=== PATIENT | female | born 1985 | race African-American/Black ===

== ENCOUNTER 2019-07-06 05:51 | Inpatient (IN) ==
[2019-07-06 06:29] LABS: Basophils # 0.1 10*3/uL (0.0-0.2); Eosinophils # 0.1 10*3/uL (0.0-0.87); Hematocrit 35.3 VOL% (35.7-47.0); Immature Granulocytes % 0.4 %; Immature Granulocytes Absolute 0.03 #; Lymphocytes # 4.7 10*3/uL (1.4-4.0); Lymphocytes % 65.7 % (21.3-54.2); Mean Corpuscular HGB Conc 31.2 GM/DL (32-36); Mean Corpuscular Volume 70.2 FL (87-102); Monocytes % 7.3 % (1.7-12.7); Neutrophils % 23.6 % (38.7-73.9); Platelet Count 77 T/CUMM (130-400); Red Blood Count 5.03 MC/CUMM (3.8-5.5); Red Cell Distribution Width 27.7 % (9.3-17.3); White Blood Count 7.1 T/CUMM (4-12)
[2019-07-06 06:50] LABS: Albumin 3.3 G/DL (3.4-5.0); Bilirubin,Total 0.8 MG/DL (0.2-1.0); Calcium 8.6 MG/DL (8.5-10.1); Osmolality,Calculated 274.4 MOS/KG (273-304); Total Protein 7.6 G/DL (6.4-8.3)
[2019-07-06 07:27] LABS: Lymphocytes 52 % (20-55); Metamyelocytes 2 %; Segmented Neutrophils 29 % (50-85); Total Cells Counted 100
[2019-07-06 07:28] LABS: Hypochromasia 2+; Microcytosis 2+; Schistocytes Slight
[2019-07-06 07:29] LABS: Ovalocytes Few; Platelet Estimate Decreased; Polychromasia Slight
[2019-07-06] MEDS ORDERED: LORazepam 1 MG TABLET ONE (08:10)
[2019-07-06] MEDS ORDERED: LORazepam 1 MG TABLET PO STA (08:13)
[2019-07-06] MEDS ORDERED: VASOPRESSIN 20 UNITS/ML VIAL ONE (08:15)
[2019-07-06] MEDS: LACTATED RINGERS 1,000 ML IV SCH ×3 (08:21→21:13)
[2019-07-06] MEDS ORDERED: BUPIVACAINE 0.5% 50 ML VIAL ONE (08:35)
[2019-07-06] MEDS ORDERED: LIDOCAINE 1% 5 ML VIAL ONE (08:35)
[2019-07-06] MEDS ORDERED: EPINEPHrine 1 MG/ML VIAL ONE (08:36)
[2019-07-06] MEDS ORDERED: DEXAMETHASONE 4 MG/1 ML VIAL ONE (08:36)
[2019-07-06] MEDS ORDERED: cefOXitin 2,000 MG in SYRINGE 1 EACH IV ONE (09:00)
[2019-07-06] MEDS ORDERED: ONDANSETRON 4 MG/2 ML VIAL IV PRN (11:54)
[2019-07-06] MEDS: HYDROmorphone 2 MG/1 ML VIAL IV PRN ×4 (11:56→12:23)
[2019-07-06] MEDS ORDERED: ACETAMINOPHEN INJ 1,000 MG in PREMIX 1 EACH IV ONE (11:59)
[2019-07-06] MEDS ORDERED: ACETAMINOPHEN 1,000 MG/100 ML VIAL IV ONE (12:01)
[2019-07-06 12:05] LABS: Apearance,Urine CLEAR (Clear); Bacteria,Urine Occasional /HPF (Few); Bilirubin,Urine Negative (Negative); Blood, Urine Negative (Negative); Glucose,Urine (UA) Negative (Negative); Ketones,Urine Negative (Negative); Mucus,Urine Occasional /LPF (Occasional); Nitrite,Urine Negative (Negative); Protein,Urine Negative; RBC,Urine <1 /HPF (0-4); Squamous Epithelial Cell,Urine Occasional /HPF (0-10); Urine Color Yellow (Yellow); Urine Specific Gravity 1.006 (1.001-1.035)
[2019-07-06] MEDS ORDERED: DESFLURANE 1 UNIT/15 MINUTE INH ONE (12:23)
[2019-07-06] MEDS ORDERED: MIDAZOLAM 2 MG/2 ML VIAL ONE (12:23)
[2019-07-06] MEDS ORDERED: fentaNYL 100 MCG/2 ML VIAL ONE (12:23)
[2019-07-06] MEDS ORDERED: PROPOFOL 200 MG/20 ML VIAL IV ONE (12:23)
[2019-07-06] MEDS ORDERED: LIDOCAINE 2% 5 ML VIAL ONE (12:23)
[2019-07-06] MEDS ORDERED: METOPROLOL TARTRATE 5 MG/5 ML VIAL IV ONE (12:24)
[2019-07-06] MEDS ORDERED: ROCURONIUM 100 MG/10 ML VIAL IV ONE (12:24)
[2019-07-06] MEDS ORDERED: SUCCINYLCHOLINE 200 MG/10 ML VIAL ONE (12:24)
[2019-07-06] MEDS ORDERED: NEOSTIGMINE 10 MG/10 ML VIAL ONE (12:24)
[2019-07-06] MEDS ORDERED: KETOROLAC 30 MG/1 ML VIAL ONE (12:24)
[2019-07-06] MEDS ORDERED: LACTATED RINGERS 1,000 ML IV ONE (12:24)
[2019-07-06] MEDS ORDERED: GLYCOPYRROLATE 0.4 MG/2 ML VIAL ONE (12:24)
[2019-07-06] MEDS ORDERED: BENZOCAINE/MENTHOL LOZENGE 18/BOX PO PRN (13:07)
[2019-07-06] MEDS ORDERED: ACETAMINOPHEN 325 MG TABLET PO PRN (13:07)
[2019-07-06] MEDS ORDERED: BISACODYL 10 MG SUPP RECTAL PRN (13:07)
[2019-07-06] MEDS ORDERED: ESTRADIOL 0.1 MG PATCH (1X WK) TRANSDERM SCH (13:07)
[2019-07-06] MEDS ORDERED: INFLUENZA VIRUS VACCINE 0.5 ML SYRINGE IM ONE (13:36)
[2019-07-06] MEDS: NICOTINE 14 MG/24 HR PATCH TRANSDERM SCH (15:05)
[2019-07-06] MEDS: ceFAZolin 1,000 MG in SYRINGE 1 EACH IV SCH (17:55)
[2019-07-06] MEDS: CETIRIZINE 10 MG TABLET PO SCH (20:46)
[2019-07-07] MEDS: ceFAZolin 1,000 MG in SYRINGE 1 EACH IV SCH (01:25)
[2019-07-07 05:31] LABS: Basophils # 0.1 10*3/uL (0.0-0.2); Basophils % 0.7 % (0.0-0.8); Eosinophils % 0.4 % (0.00-10.9); Hematocrit 24.9 VOL% (35.7-47.0); Hemoglobin 7.8 GM/DL (12.0-16.0); Immature Granulocytes % 0.4 %; Immature Granulocytes Absolute 0.03 #; Lymphocytes # 4.1 10*3/uL (1.4-4.0); Mean Corpuscular HGB Conc 31.3 GM/DL (32-36); Mean Corpuscular Volume 70.9 FL (87-102); Monocytes % 7.9 % (1.7-12.7); NRBC # 0.02 10*3/uL; Neutrophils % 34.6 % (38.7-73.9); Red Blood Count 3.51 MC/CUMM (3.8-5.5); White Blood Count 7.3 T/CUMM (4-12)
[2019-07-07 05:46] LABS: Platelet Count 92 T/CUMM (130-400)
[2019-07-07] MEDS: SIMETHICONE CHEW 80 MG TABLET PO PRN ×2 (06:00→10:10)
[2019-07-07 06:43] LABS: Anisocytosis 2+; Band Neutrophils 10 % (0-10); Lymphocytes 32 % (20-55); Platelet Estimate Decreased; Poikilocytosis 1+; Polychromasia 1+; Segmented Neutrophils 48 % (50-85); Smudge Cells 2+; Target Cells Few; Total Cells Counted 100
[2019-07-07] MEDS: ONDANSETRON 4 MG/2 ML VIAL IV PRN (06:51)
[2019-07-07] MEDS ORDERED: PROMETHAZINE 25 MG/1 ML VIAL IM PRN (07:57)
[2019-07-07] MEDS: MAGNESIUM HYDROXIDE SUSP 30 ML UDCUP PO PRN ×2 (10:09→19:27)
[2019-07-07] MEDS: NICOTINE 14 MG/24 HR PATCH TRANSDERM SCH (10:09)
[2019-07-07] MEDS: FLUTICASONE 50 MCG NASAL SPRAY 16 GM BOTTLE BOTH NARES SCH (10:09)
[2019-07-07] MEDS: DOCUSATE SODIUM 100 MG CAPSULE PO PRN ×2 (10:10→19:27)
[2019-07-07] MEDS ORDERED: SODIUM CHLORIDE 0.9% 1,000 ML IV PRN (11:30)
[2019-07-07] MEDS ORDERED: diphenhydrAMINE CAP 25 MG CAPSULE PO ONE (12:13)
[2019-07-07] MEDS: CETIRIZINE 10 MG TABLET PO SCH (21:48)
[2019-07-08 05:44] LABS: Calcium 8.9 MG/DL (8.5-10.1); Osmolality,Calculated 280.1 MOS/KG (273-304)
[2019-07-08 05:47] LABS: Basophils # 0.1 10*3/uL (0.0-0.2); Basophils % 0.7 % (0.0-0.8); Eosinophils % 0.4 % (0.00-10.9); Hematocrit 28.5 VOL% (35.7-47.0); Hemoglobin 8.9 GM/DL (12.0-16.0); Immature Granulocytes % 0.5 %; Immature Granulocytes Absolute 0.06 #; Lymphocytes # 5.3 10*3/uL (1.4-4.0); Mean Corpuscular HGB Conc 31.2 GM/DL (32-36); Mean Corpuscular Volume 75.4 FL (87-102); Monocytes % 9.4 % (1.7-12.7); Platelet Count 94 T/CUMM (130-400); Red Blood Count 3.78 MC/CUMM (3.8-5.5); Red Cell Distribution Width 27.1 % (9.3-17.3); White Blood Count 11.1 T/CUMM (4-12)
[2019-07-08 06:16] LABS: Eosinophils 4 % (0-10); Hypochromasia 1+; Lymphocytes 37 % (20-55); Ovalocytes Slight; Platelet Estimate Decreased; Segmented Neutrophils 52 % (50-85); Total Cells Counted 100
[2019-07-08] MEDS: MAGNESIUM HYDROXIDE SUSP 30 ML UDCUP PO PRN (07:57)
[2019-07-08] MEDS: DOCUSATE SODIUM 100 MG CAPSULE PO PRN ×2 (07:57→21:08)
[2019-07-08] MEDS: SIMETHICONE CHEW 80 MG TABLET PO PRN (07:57)
[2019-07-08] MEDS: NICOTINE 14 MG/24 HR PATCH TRANSDERM SCH (08:00)
[2019-07-08] MEDS: FLUTICASONE 50 MCG NASAL SPRAY 16 GM BOTTLE BOTH NARES SCH (08:00)
[2019-07-08] MEDS ORDERED: amLODIPine 10 MG TABLET PO ONE (09:00)
[2019-07-08] MEDS: ONDANSETRON 4 MG/2 ML VIAL IV PRN (10:47)
[2019-07-08] MEDS: METOCLOPRAMIDE 10 MG/2 ML VIAL IV PRN (11:21)
[2019-07-08] MEDS: CETIRIZINE 10 MG TABLET PO SCH (21:08)
[2019-07-08] MEDS: LACTATED RINGERS 1,000 ML IV SCH (21:10)
[2019-07-09] MEDS: LACTATED RINGERS 1,000 ML IV SCH ×2 (04:51→13:30)
[2019-07-09] MEDS: DOCUSATE SODIUM 100 MG CAPSULE PO PRN ×2 (12:18→21:12)
[2019-07-09] MEDS: NICOTINE 14 MG/24 HR PATCH TRANSDERM SCH (12:18)
[2019-07-09] MEDS: METOCLOPRAMIDE 10 MG/2 ML VIAL IV PRN (12:19)
[2019-07-09] MEDS: FLUTICASONE 50 MCG NASAL SPRAY 16 GM BOTTLE BOTH NARES SCH (12:24)
[2019-07-09] MEDS: IBUPROFEN 800 MG TABLET PO PRN (17:05)
[2019-07-09] MEDS: CETIRIZINE 10 MG TABLET PO SCH (21:12)
[2019-07-10 07:57] VITALS: BP 120/76
[2019-07-10] MEDS: DOCUSATE SODIUM 100 MG CAPSULE PO PRN (08:51)
[2019-07-10] MEDS: IBUPROFEN 800 MG TABLET PO PRN (08:51)
[2019-07-10] MEDS: FLUTICASONE 50 MCG NASAL SPRAY 16 GM BOTTLE BOTH NARES SCH (08:52)
[2019-07-10] MEDS: NICOTINE 14 MG/24 HR PATCH TRANSDERM SCH (09:00)
== END 2019-07-10 12:00 | disposition home or self-care (01) | DRG 519 ==
LOC: N.SDSINP 05:51 → N.OB 12:31
PROVIDERS: ADMIT Obstetrics & Gynecology; ATTEND Obstetrics & Gynecology

== ENCOUNTER 2019-07-16 09:53 | Inpatient (IN) ==
[2019-07-16 11:00] LABS: Basophils # 0.1 10*3/uL (0.0-0.2); Basophils % 0.7 % (0.0-0.8); Eosinophils # 0.1 10*3/uL (0.0-0.87); Eosinophils % 0.8 % (0.00-10.9); Hemoglobin 9.5 GM/DL (12.0-16.0); Immature Granulocytes % 0.8 %; Immature Granulocytes Absolute 0.07 #; Lymphocytes # 4.3 10*3/uL (1.4-4.0); Lymphocytes % 50.6 % (21.3-54.2); Mean Corpuscular HGB Conc 29.7 GM/DL (32-36); Mean Corpuscular Volume 77.5 FL (87-102); Monocytes % 8.2 % (1.7-12.7); NRBC # 0.03 10*3/uL; Neutrophils % 38.9 % (38.7-73.9); Platelet Count 175 T/CUMM (130-400); Red Blood Count 4.13 MC/CUMM (3.8-5.5); Red Cell Distribution Width 27.4 % (9.3-17.3); White Blood Count 8.6 T/CUMM (4-12)
[2019-07-16 11:25] LABS: Albumin 3.5 G/DL (3.4-5.0); Bilirubin,Total 1.3 MG/DL (0.2-1.0); Calcium 8.8 MG/DL (8.5-10.1)
[2019-07-16 11:41] LABS: Band Neutrophils 6 % (0-10); Eosinophils 1 % (0-10); Lymphocytes 41 % (20-55); Nucleated Red Blood Cells 2 (0-5); Platelet Estimate Normal; Segmented Neutrophils 43 % (50-85); Total Cells Counted 100
[2019-07-16 11:42] LABS: Anisocytosis 2+; Hypochromasia 1+; Macrocytosis 1+; Poikilocytosis Slight; Polychromasia 1+
[2019-07-16 12:04] LABS: Apearance,Urine CLOUDY (Clear); Bacteria,Urine Occasional /HPF (Few); Bilirubin,Urine Negative (Negative); Blood, Urine Moderate mg/dL (Negative); Glucose,Urine (UA) Negative (Negative); Ketones,Urine Negative (Negative); Nitrite,Urine Negative (Negative); Protein,Urine Negative; RBC,Urine 38 /HPF (0-4); Squamous Epithelial Cell,Urine Moderate /HPF (0-10); Transitional Epi Cells,Urine Occasional /HPF (<1); Urine Color Yellow (Yellow); Urine Specific Gravity 1.051 (1.001-1.035); Urine Urobilinogen < 2.0 EU/DL (0.2-1.0); WBC,Urine 27 /HPF (0-6)
[2019-07-16 12:49] LABS: INR 1.1; PT Patient Result 11.6 SECS (9.6-12.2); Partial Thromboplastin Time 23.8 SECS (20.8-36.0)
[2019-07-16] MEDS ORDERED: fentaNYL 100 MCG/2 ML VIAL ONE (13:11)
[2019-07-16] MEDS ORDERED: MIDAZOLAM 2 MG/2 ML VIAL ONE (13:11)
[2019-07-16] MEDS ORDERED: MIDAZOLAM 2 MG/2 ML VIAL IV ONE (13:20)
[2019-07-16] MEDS ORDERED: fentaNYL 100 MCG/2 ML VIAL IV ONE (13:23)
[2019-07-16] MEDS ORDERED: ALTEPLASE 2 MG VIAL ONE (13:35)
[2019-07-16] MEDS ORDERED: ALTEPLASE 2 MG VIAL INTRACATH ONE (13:39)
[2019-07-16] MEDS ORDERED: ACETAMINOPHEN 325 MG TABLET PO PRN (14:21)
[2019-07-16] MEDS ORDERED: ONDANSETRON 4 MG/2 ML VIAL IV PRN (14:21)
[2019-07-16] MEDS ORDERED: BISACODYL 10 MG SUPP RECTAL PRN (14:21)
[2019-07-16] MEDS ORDERED: MAGNESIUM HYDROXIDE SUSP 30 ML UDCUP PO PRN (14:21)
[2019-07-16] MEDS: cefTRIAXone 1,000 MG in SYRINGE 1 EACH IV SCH (14:31)
[2019-07-16 14:44] LABS: Albumin 3.6 G/DL (3.4-5.0); Bilirubin,Direct 0.34 MG/DL (0.0-0.20); Bilirubin,Indirect 0.7 MG/DL (0.0-1.0); Total Protein 8.3 G/DL (6.4-8.3)
[2019-07-16] MEDS: CLINDAMYCIN INJ 600 MG in PREMIX 1 EACH IV SCH (14:50)
[2019-07-16] MEDS: IBUPROFEN 800 MG TABLET PO PRN (15:19)
[2019-07-16 17:59] LABS: % Iron Saturation 29.9 % (18-50); Ferritin 56.5 ng/ml (8-252)
[2019-07-16 18:09] LABS: Folate 13.2 NG/ML (5.4-24.0)
[2019-07-16 18:46] LABS: Hepatitis B Core IgM Quant 0.07 Index; Hepatitis B Surface Ag Quant 0.58 Index; Hepatitis B Surface Ag Result Negative (Negative); Hepatitis C Virus Ab Quant 0.11 Index; Hepatitis C Virus Ab Result Negative (Negative)
[2019-07-16] MEDS: LACTATED RINGERS 1,000 ML IV SCH (19:58)
[2019-07-16] MEDS: DOCUSATE SODIUM 100 MG CAPSULE PO SCH (20:00)
[2019-07-17] MEDS: IBUPROFEN 800 MG TABLET PO PRN ×2 (00:13→15:48)
[2019-07-17] MEDS: CLINDAMYCIN INJ 600 MG in PREMIX 1 EACH IV SCH ×4 (00:15→22:15)
[2019-07-17] MEDS: LACTATED RINGERS 1,000 ML IV SCH ×3 (03:01→22:06)
[2019-07-17 05:23] LABS: Basophils # 0.1 10*3/uL (0.0-0.2); Basophils % 0.7 % (0.0-0.8); Eosinophils # 0.1 10*3/uL (0.0-0.87); Eosinophils % 1.9 % (0.00-10.9); Hematocrit 28.5 VOL% (35.7-47.0); Hemoglobin 8.5 GM/DL (12.0-16.0); Immature Granulocytes % 0.6 %; Immature Granulocytes Absolute 0.04 #; Lymphocytes # 3.9 10*3/uL (1.4-4.0); Lymphocytes % 58.1 % (21.3-54.2); Mean Corpuscular HGB Conc 29.8 GM/DL (32-36); Mean Corpuscular Volume 77.7 FL (87-102); Monocytes % 10.3 % (1.7-12.7); NRBC # 0.03 10*3/uL; Neutrophils % 28.4 % (38.7-73.9); Platelet Count 152 T/CUMM (130-400); Red Blood Count 3.67 MC/CUMM (3.8-5.5); Red Cell Distribution Width 27.4 % (9.3-17.3); White Blood Count 6.8 T/CUMM (4-12)
[2019-07-17 05:48] LABS: Eosinophils 1 % (0-10); Hypochromasia 2+; Lymphocytes 47 % (20-55); Nucleated Red Blood Cells 1 (0-5); Ovalocytes Slight; Platelet Estimate Adequate; Segmented Neutrophils 44 % (50-85); Total Cells Counted 100
[2019-07-17 05:49] LABS: Atypical Lymphocytes Few
[2019-07-17 08:02] LABS: Albumin 3.1 G/DL (3.4-5.0); Bilirubin,Direct 0.33 MG/DL (0.0-0.20); Bilirubin,Indirect 0.7 MG/DL (0.0-1.0)
[2019-07-17] MEDS ORDERED: cefTRIAXone 1,000 MG VIAL ONE (11:15)
[2019-07-17] MEDS ORDERED: LIDOCAINE 2% 5 ML VIAL ONE (11:38)
[2019-07-17] MEDS ORDERED: ONDANSETRON 4 MG/2 ML VIAL ONE (11:38)
[2019-07-17] MEDS ORDERED: SEVOFLURANE 1 UNIT/15 MINUTE INH ONE (11:38)
[2019-07-17] MEDS ORDERED: PROPOFOL 200 MG/20 ML VIAL IV ONE (11:38)
[2019-07-17] MEDS ORDERED: MIDAZOLAM 2 MG/2 ML VIAL ONE (11:38)
[2019-07-17] MEDS ORDERED: fentaNYL 100 MCG/2 ML VIAL ONE (11:38)
[2019-07-17] MEDS ORDERED: HYDROmorphone 2 MG/1 ML VIAL IV PRN (12:04)
[2019-07-17] MEDS ORDERED: HYDROmorphone 2 MG/1 ML VIAL ONE (12:06)
[2019-07-17] MEDS: cefTRIAXone 1,000 MG in SYRINGE 1 EACH IV SCH (14:20)
[2019-07-17] MEDS: amLODIPine 10 MG TABLET PO SCH (14:25)
[2019-07-17] MEDS: OXYBUTYNIN 5 MG TABLET PO PRN (14:25)
[2019-07-17] MEDS: DOCUSATE SODIUM 100 MG CAPSULE PO SCH ×2 (15:48→22:07)
[2019-07-18] MEDS: IBUPROFEN 800 MG TABLET PO PRN ×3 (03:17→18:02)
[2019-07-18] MEDS: CLINDAMYCIN INJ 600 MG in PREMIX 1 EACH IV SCH ×3 (06:18→21:39)
[2019-07-18 08:28] LABS: Albumin 3.1 G/DL (3.4-5.0); Calcium 8.6 MG/DL (8.5-10.1); Osmolality,Calculated 270.7 MOS/KG (273-304); Total Protein 7.2 G/DL (6.4-8.3)
[2019-07-18] MEDS ORDERED: MAGNESIUM SULF IV ONE (08:36)
[2019-07-18] MEDS ORDERED: SODIUM CHLORIDE 0.9% IV ONE (08:36)
[2019-07-18 08:39] LABS: Bilirubin,Direct 0.41 MG/DL (0.0-0.20); Bilirubin,Indirect 0.6 MG/DL (0.0-1.0)
[2019-07-18] MEDS ORDERED: MAGNESIUM SULF RIDER 50 ML IV ONE (09:30)
[2019-07-18] MEDS: NICOTINE 14 MG/24 HR PATCH TRANSDERM SCH ×2 (09:42→10:28)
[2019-07-18] MEDS: amLODIPine 10 MG TABLET PO SCH (09:42)
[2019-07-18] MEDS: LACTATED RINGERS 1,000 ML IV SCH ×3 (10:24→21:25)
[2019-07-18] MEDS: cefTRIAXone 1,000 MG in SYRINGE 1 EACH IV SCH (14:36)
[2019-07-18] MEDS: DOCUSATE SODIUM 100 MG CAPSULE PO SCH ×2 (14:58→21:25)
[2019-07-18] MEDS: OXYBUTYNIN 5 MG TABLET PO PRN (18:02)
[2019-07-19] MEDS: LACTATED RINGERS 1,000 ML IV SCH ×2 (05:34→17:00)
[2019-07-19] MEDS: CLINDAMYCIN INJ 600 MG in PREMIX 1 EACH IV SCH ×3 (05:34→22:22)
[2019-07-19 06:26] LABS: Basophils # 0.1 10*3/uL (0.0-0.2); Basophils % 0.9 % (0.0-0.8); Eosinophils # 0.1 10*3/uL (0.0-0.87); Eosinophils % 1.9 % (0.00-10.9); Hematocrit 29.3 VOL% (35.7-47.0); Immature Granulocytes % 0.6 %; Immature Granulocytes Absolute 0.04 #; Lymphocytes # 4.3 10*3/uL (1.4-4.0); Mean Corpuscular HGB Conc 30.7 GM/DL (32-36); Mean Corpuscular Volume 77.3 FL (87-102); Monocytes % 7.8 % (1.7-12.7); NRBC # 0.03 10*3/uL; Neutrophils % 25.8 % (38.7-73.9); Platelet Count 162 T/CUMM (130-400); Red Blood Count 3.79 MC/CUMM (3.8-5.5); Red Cell Distribution Width 27.1 % (9.3-17.3); White Blood Count 6.8 T/CUMM (4-12)
[2019-07-19 06:49] LABS: Albumin 3.1 G/DL (3.4-5.0); Bilirubin,Total 0.8 MG/DL (0.2-1.0); Calcium 8.9 MG/DL (8.5-10.1); Osmolality,Calculated 274.4 MOS/KG (273-304); Total Protein 7.2 G/DL (6.4-8.3)
[2019-07-19] MEDS ORDERED: MAGNESIUM SULF RIDER 2 GM in PREMIX 1 EACH IV ONE (06:58)
[2019-07-19 07:07] LABS: Eosinophils 1 % (0-10); Lymphocytes 54 % (20-55); Platelet Estimate Decreased; Polychromasia Few; Segmented Neutrophils 38 % (50-85); Total Cells Counted 100
[2019-07-19 07:28] LABS: Bilirubin,Direct 0.3 MG/DL (0.0-0.20); Bilirubin,Indirect 1.3 MG/DL (0.0-1.0); Bilirubin,Total 1.6 MG/DL (0.2-1.0)
[2019-07-19] MEDS: IBUPROFEN 800 MG TABLET PO PRN ×2 (07:39→21:12)
[2019-07-19] MEDS: OXYBUTYNIN 5 MG TABLET PO PRN ×2 (07:39→14:08)
[2019-07-19] MEDS: amLODIPine 10 MG TABLET PO SCH (08:56)
[2019-07-19] MEDS: DOCUSATE SODIUM 100 MG CAPSULE PO SCH ×2 (09:00→21:12)
[2019-07-19] MEDS: cefTRIAXone 1,000 MG in SYRINGE 1 EACH IV SCH (14:08)
[2019-07-19] MEDS: NICOTINE 14 MG/24 HR PATCH TRANSDERM SCH (14:09)
[2019-07-20] MEDS: DOCUSATE SODIUM 100 MG CAPSULE PO SCH ×2 (00:07→09:17)
[2019-07-20] MEDS: LACTATED RINGERS 1,000 ML IV SCH ×2 (01:47→01:48)
[2019-07-20 05:33] LABS: Basophils # 0.1 10*3/uL (0.0-0.2); Basophils % 0.8 % (0.0-0.8); Eosinophils # 0.2 10*3/uL (0.0-0.87); Eosinophils % 2.8 % (0.00-10.9); Hematocrit 29.5 VOL% (35.7-47.0); Immature Granulocytes % 0.5 %; Immature Granulocytes Absolute 0.03 #; Lymphocytes # 3.8 10*3/uL (1.4-4.0); Lymphocytes % 60.1 % (21.3-54.2); Mean Corpuscular HGB Conc 30.5 GM/DL (32-36); Mean Corpuscular Volume 77.8 FL (87-102); Monocytes % 9.9 % (1.7-12.7); NRBC # 0.02 10*3/uL; Neutrophils % 25.9 % (38.7-73.9); Platelet Count 158 T/CUMM (130-400); Red Blood Count 3.79 MC/CUMM (3.8-5.5); Red Cell Distribution Width 27.6 % (9.3-17.3); White Blood Count 6.3 T/CUMM (4-12)
[2019-07-20 05:53] LABS: Bilirubin,Direct 0.23 MG/DL (0.0-0.20); Bilirubin,Indirect 0.9 MG/DL (0.0-1.0); Bilirubin,Total 0.7 MG/DL (0.2-1.0); Bilirubin,Total 1.1 MG/DL (0.2-1.0); Calcium 8.9 MG/DL (8.5-10.1); Osmolality,Calculated 268.8 MOS/KG (273-304); Total Protein 7.1 G/DL (6.4-8.3)
[2019-07-20 05:56] LABS: Eosinophils 3 % (0-10); Hypochromasia 1+; Lymphocytes 54 % (20-55); Ovalocytes Slight; Platelet Estimate Adequate; Segmented Neutrophils 33 % (50-85); Total Cells Counted 100
[2019-07-20] MEDS: CLINDAMYCIN INJ 600 MG in PREMIX 1 EACH IV SCH (06:28)
[2019-07-20] MEDS: IBUPROFEN 800 MG TABLET PO PRN (08:56)
[2019-07-20] MEDS ORDERED: ESTRADIOL 0.1 MG PATCH (1X WK) TRANSDERM SCH (09:00)
[2019-07-20] MEDS: amLODIPine 10 MG TABLET PO SCH (09:17)
[2019-07-20 09:27] VITALS: BP 132/79
[2019-07-20] MEDS: NICOTINE 14 MG/24 HR PATCH TRANSDERM SCH (12:32)
== END 2019-07-20 12:00 | disposition home or self-care (01) | DRG 813 ==
LOC: N.ED 09:53 → N.EDINP 11:39 → N.OB 12:05
PROVIDERS: ADMIT Obstetrics & Gynecology; ATTEND Obstetrics & Gynecology
PROC: [UNRECOGNIZED PROCEDURE] (2019-07-16 13:10)